=== PATIENT | male | born 1980 | race Caucasian/White ===

== ENCOUNTER 2018-01-19 13:40 | Outpatient (CLI) | payer BC ==
--- NOTE | 2018-01-20 21:39 | XRAY Report ---
Reason: INVERSION INJURY Procedure Date: 01/19/2018 Accession Number: [id number] / [id number] Procedure: XR - Foot 3 View LT CPT Code: FULL RESULT: EXAM: LEFT FOOT RADIOGRAPHY EXAM DATE: 01/19/2018 03:01 PM. CLINICAL HISTORY: Inversion injury. COMPARISON: None. TECHNIQUE: 3 views. FINDINGS: Bones: Normal. No fractures or bone lesions. Joints: Normal. No subluxations. Soft Tissues: Normal. No soft tissue swelling. IMPRESSION: Normal foot radiography. [facility]
--- NOTE | 2018-01-20 21:39 | XRAY Report ---
Reason: INVERSION INJURY Procedure Date: 01/19/2018 Accession Number: [id number] Procedure: XR - Ankle 3 View LT CPT Code: FULL RESULT: EXAM: LEFT ANKLE RADIOGRAPHY EXAM DATE: 01/19/2018 03:04 PM. CLINICAL HISTORY: Inversion injury. COMPARISON: None. TECHNIQUE: 3 views. FINDINGS: Bones: Normal. No fractures or bone lesions. Joints: There is a small ankle joint effusion. Soft Tissues: Normal. No soft tissue swelling. IMPRESSION: Ankle joint effusion. [facility]
== END 2018-01-19 13:41 | disposition home or self-care (01) ==
LOC: DI 13:40
PROVIDERS: ATTEND Family Medicine
DX: S99.822A Other specified injuries of left foot, initial encounter (principal); M25.472 Effusion, left ankle